=== PATIENT | female | born 1990 | race Caucasian/White ===

== ENCOUNTER 2023-08-03 05:32 | Inpatient (IN) | payer BC ==
[2023-08-03] MEDS ORDERED: ceFAZolin 2 GM in Sodium Chloride 0.9% 50 ML IV ONE (05:40)
[2023-08-03] MEDS ORDERED: Metoclopramide 10 MG/2 ML SDV IVPUSH ONE (05:40)
[2023-08-03] MEDS ORDERED: Citric Acid/Sodium Citrate Solution 30 ML Cup PO ONE (05:40)
[2023-08-03] MEDS ORDERED: Lactated Ringers 1,000 ML IV SCH (05:45)
[2023-08-03] MEDS: Lactated Ringers 1,000 ML IV SCH ×2 (05:53→14:13)
[2023-08-03 06:18] LABS: BASOPHILS ABSOLUTE AUTO 0.1 K/mm3 (0.0-0.2); BASOPHILS PERCENT AUTO 0.4 % (0.0-1.0); EOSINOPHILS ABSOLUTE AUTO 0.1 K/mm3 (0.0-0.4); EOSINOPHILS PERCENT AUTO 0.5 % (0.0-6.0); HEMATOCRIT 35.1 % (37.0-47.0); IMMATURE GRAN ABSOLUTE AUTO 0.12 K/mm3 (0.00-0.05); IMMATURE GRAN PERCENT AUTO 0.9 % (0.0-0.4); LYMPHOCYTES ABSOLUTE AUTO 1.9 K/mm3 (1.0-4.8); LYMPHOCYTES PERCENT AUTO 15.2 % (24.0-44.0); MEAN CORPUSCULAR HEMOGLOBIN 30.4 pg (28.0-32.0); MEAN CORPUSCULAR HGB CONC 34.2 g/dl (32.0-36.0); MEAN CORPUSCULAR VOLUME 88.9 fl (83.0-99.0); MEAN PLATELET VOLUME 10.1 fl (9.4-12.3); MONOCYTES ABSOLUTE AUTO 0.9 K/mm3 (0.0-0.8); MONOCYTES PERCENT AUTO 6.7 % (0.0-8.0); NEUTROPHILS ABSOLUTE AUTO 9.7 K/mm3 (1.8-7.7); NEUTROPHILS PERCENT AUTO 76.3 % (41.0-71.0); PLATELET COUNT,PLT 214 K/mm3 (150-400); RED BLOOD CELL COUNT 3.95 M/mm3 (4.10-5.30); WHITE BLOOD CELL COUNT,WBC 12.73 K/mm3 (3.9-11.3)
[2023-08-03] MEDS ORDERED: Oxytocin/Lactated Ringers 30 UNIT/500 ML BAG IV SCH (07:15)
[2023-08-03] MEDS ORDERED: Oxytocin 10 Units/1 ML SDV ONE ×2 (07:18→08:29)
[2023-08-03] MEDS ORDERED: fentaNYL 100 MCG/2 ML SDV ONE (07:18)
[2023-08-03] MEDS ORDERED: ceFAZolin 2 GM Vial ONE (07:18)
[2023-08-03] MEDS ORDERED: Morphine PF 10 MG/10 ML SDV ONE (07:18)
[2023-08-03] MEDS ORDERED: Ondansetron 4 MG/2 ML SDV ONE (08:05)
[2023-08-03] MEDS ORDERED: Lactated Ringers 1,000 ML ONE (08:05)
[2023-08-03] MEDS ORDERED: Phenylephrine 1% 10 MG/ML SDV ONE (08:18)
[2023-08-03] MEDS ORDERED: Ketorolac 30 MG/ML SDV ONE (08:26)
[2023-08-03] MEDS ORDERED: diphenhydrAMINE 50 MG/ML SDV IVPUSH PRN ×2 (08:45→09:57)
[2023-08-03] MEDS ORDERED: fentaNYL 100 MCG/2 ML SDV IVPUSH PRN (08:45)
[2023-08-03] MEDS ORDERED: Ondansetron 4 MG/2 ML SDV IVPUSH PRN (08:45)
[2023-08-03] MEDS ORDERED: ePHEDrine 50 MG/ML SDV IVPUSH PRN (09:57)
[2023-08-03] MEDS ORDERED: Ondansetron 4 MG/2 ML SDV IV PRN (09:57)
[2023-08-03] MEDS ORDERED: Dextrose 5%-Lactated Ringers 1,000 ML IV SCH (09:57)
[2023-08-03 13:44] LABS: HEMATOCRIT 28.3 % (37.0-47.0); MEAN CORPUSCULAR HEMOGLOBIN 30.4 pg (28.0-32.0); MEAN CORPUSCULAR HGB CONC 33.9 g/dl (32.0-36.0); MEAN CORPUSCULAR VOLUME 89.6 fl (83.0-99.0); PLATELET COUNT,PLT 187 K/mm3 (150-400); RED BLOOD CELL COUNT 3.16 M/mm3 (4.10-5.30)
[2023-08-03 13:49] LABS: HEMOGLOBIN 9.6 gm/dl (12.0-16.0)
[2023-08-03 14:00] LABS: PROTHROMBIN TIME 10.7 SECONDS (9.7-12.0)
[2023-08-03 14:02] LABS: PTT,PARTIAL THROMBOPLSTIN TIME 25.2 SECONDS (21.7-31.4)
[2023-08-03] MEDS: Ketorolac 30 MG/ML SDV IVPUSH SCH ×2 (14:58→20:48)
[2023-08-04] MEDS: Ketorolac 30 MG/ML SDV IVPUSH SCH (04:01)
[2023-08-04 05:34] LABS: HEMATOCRIT 26.4 % (37.0-47.0); HEMOGLOBIN 8.8 gm/dl (12.0-16.0); MEAN CORPUSCULAR HEMOGLOBIN 30.3 pg (28.0-32.0); MEAN CORPUSCULAR HGB CONC 33.3 g/dl (32.0-36.0); MEAN PLATELET VOLUME 10.1 fl (9.4-12.3); PLATELET COUNT,PLT 162 K/mm3 (150-400); WHITE BLOOD CELL COUNT,WBC 12.94 K/mm3 (3.9-11.3)
[2023-08-04] MEDS: Docusate Sodium 100 MG Cap PO PRN (08:53)
[2023-08-04] MEDS: Acetaminophen/oxyCODONE 325-5 MG Tab PO PRN ×4 (08:53→20:47)
[2023-08-04] MEDS: Ibuprofen 600 MG Tab PO PRN ×3 (12:25→23:59)
[2023-08-05] MEDS: Acetaminophen/oxyCODONE 325-5 MG Tab PO PRN ×2 (04:14→12:53)
[2023-08-05] MEDS: Docusate Sodium 100 MG Cap PO PRN (08:03)
[2023-08-05] MEDS: Ibuprofen 600 MG Tab PO PRN (08:03)
== END 2023-08-05 15:04 | disposition home or self-care (01) | DRG 540 ==
LOC: JD.OB 05:32
PROVIDERS: ADMIT Obstetrics & Gynecology; ATTEND Obstetrics & Gynecology
PROC: 10D00Z1 Extraction of Products of Conception, Low, Open Approach (ICD-10-PCS; principal; 2023-08-03 08:00)
DX: O32.1XX0 Maternal care for breech presentation, not applicable or unspecified (principal); Z37.0 Single live birth; Z90.49 Acquired absence of other specified parts of digestive tract; Z90.89 Acquired absence of other organs; Z3A.39 39 weeks gestation of pregnancy
CPT/HCPCS: 36415; 59025; 85025; 85027; 85384; 85610; 85730; 86592; 86850; 86870; 86900; 86901; 94762; A9270-GY; J0690; J1200; J1885; J2274; J2371; J2405; J2590; J2765; J3010; J7120; J7121